=== PATIENT | female | born 1975 | race Caucasian/White ===

== ENCOUNTER 2018-08-17 12:34 | Emergency (ER) | payer BC, OTHER ==
[~2018-08-17] VITALS: Ht 165.1 cm; Wt 72.6 kg
[2018-08-17] MEDS ORDERED: thyroid (12:48)
--- NOTE | 2018-08-17 12:59 | ED Fall/Injury ---
General Chief Complaint: Lower Extremity Stated Complaint: ANKLE INJ Nursing Triage Note: TO ROOM PER W/C ACCOMPIED BY MALE. WAS STEPPING DOWN OFF CURVE WHEN SHE TRIPPED AND TWISTED ANKLE AND FELL ON L SIDE. C/O PAIN IN R ANKLE. Source: patient, spouse Exam Limitations: no limitations History of Present Illness Date Seen by Provider: August 17, 2018 Time Seen by Provider: 12:40 Initial Comments The patient presents to the ER by private conveyance with her significant other and chief complaint that she was visiting the doctor for follow-up appointment and when she stepped off of the curb she twisted her right ankle. She's having quite a bit of pain 10 out of 10 and came straight over the ER to have it checked out. She's not able to put any weight on it. She has not previously injured or had surgery to her ankle or foot on the right side. She denies a history of osteoporosis. She has a history of hysterectomy. She has not taken anything for the pain yet. She denies striking her head nor loss of consciousness. She did land on her left hip but she says that is not bothering her. Allergies and Home Medications Allergies Coded Allergies: latex (Verified Allergy, Unknown, 08/17/18) Uncoded Allergies: sulfa (Allergy, Unknown, 08/17/18) Patient Home Medication List Home Medication List Reviewed: Yes Review of Systems Review of Systems Constitutional: No chills, No diaphoresis Eyes: Denies Blindness, Denies Blurred Vision Ears, Nose, Mouth, Throat: denies ear pain, denies ear discharge Respiratory: No short of breath Past [id number]-Atpgqg-[id number] Hx Patient Social History Alcohol Use: Denies Use Recreational Drug Use: No Smoking Status: Never a Smoker Recent Foreign Travel: No Contact w/Someone Who Travel: No Recent Infectious Disease Expo: No Physical Exam Vital Signs Vital Signs - First Documented 08/17/18 12:38 Temp 97.5 Pulse 78 Resp 18 B/P (MAP) 121/80 (94) Pulse Ox 100 O2 Delivery Room Air Capillary Refill : Less Than 3 Seconds Height, Weight, BMI Height: 5'5.00" Weight: 160lbs. oz. 72.951977ma; BMI Method:Stated General Appearance: WD/WN, mild distress HEENT: PERRL/EOMI, pharynx normal Cardiovascular: normal peripheral pulses, regular rate, rhythm, no edema Respiratory: no respiratory distress, no accessory muscle use Extremities: normal inspection, normal capillary refill, other (no erythema swelling and ecchymoses or abrasion. Painful to the lateral right malleolus posteriorly. Foot nontender with full range of motion. Sensation and motor are intact. No evidence of a tendon injury.) Neurologic/Psychiatric: no motor/sensory deficits, alert, oriented x 3 Dalton Coma Score Best Eye Response: (4) Open Spontaneously Best Verbal Response: (5) Oriented Best Motor Response: (6) Obeys Commands [place] Total: 15 Progress/Results/Core Measures Results/Orders My Orders Orders - CIRA OLMOS Ankle, Right, 3 Views (08/17/18 12:47) Ketorolac Injection (Toradol Injection) (08/17/18 13:00) Hydrocodone/Apap 5/325 Tablet (Lortab 5 (08/17/18 13:30) Medications Given in ED Current Medications Medications Dose Ordered Sig/Thomas Route Start Time Stop Time Status Last Admin Dose Admin Ketorolac Tromethamine 60 mg ONCE ONCE IVP 08/17/18 13:00 08/17/18 13:01 DC 08/17/18 12:56 60 MG Vital Signs/I&O 08/17/18 12:38 Temp 97.5 Pulse 78 Resp 18 B/P (MAP) 121/80 (94) Pulse Ox 100 O2 Delivery Room Air Blood Pressure Mean: 94 Progress Progress Note : Time: 12:57 Progress Note Ice pack, Toradol and a ankle x-ray on the right. Diagnostic Imaging Diagonstic Imaging: Xray Plain Films/CT/US/NM/MRI: ankle (r) Comments NAME: [facility]IA [facility] REC#: [id number] PT STATUS: REG ER : 1975 PHYSICIAN: CIRA OLMOS MD ADMIT DATE: 08/17/18/ER Draft Date of Exam:08/17/18 ANKLE, RIGHT, 3 VIEWS INDICATION: Slipped on curb with twisting injury to ankle 45 minutes ago. Swelling. TECHNIQUE: Three views of the right ankle CORRELATION STUDY: None FINDINGS: There is a small bone fragment adjacent to the tip of the fibula and the lateral talus suspect for small avulsion fracture, likely off the of lateral talus. Ankle mortise maintained. Distal tibia is intact. Mild soft tissue swelling is suggested. IMPRESSION: Findings suggestive of small avulsion fracture, likely at the lateral aspect the talus. Mild soft tissue swelling. Dictated on workstation # [id number] Dict: 08/17/18 1320 Trans: 08/17/18 1327 CV [id number] Interpreted by: ELLIE MASON DO Electronically signed by: Reviewed: Reviewed by Me Departure Impression Primary Impression: Fall Qualified Codes: W19.XXXA - Unspecified fall, initial encounter Additional Impressions: Ankle sprain Qualified Codes: S93.401A - Sprain of unspecified ligament of right ankle, initial encounter Avulsion fracture of talus Qualified Codes: S92.154A - Nondisplaced avulsion fracture (chip fracture) of right talus, initial encounter for closed fracture Disposition: HOME, SELF-CARE Condition: Stable Departure-Patient Inst. Decision time for Depature: 13:32 Referrals: TREVOR GEORGE MD Patient Instructions: Ankle Fracture (DC), Ankle Sprain (DC) Add. Discharge Instructions: Stay off your ankle and use the boot, Chris wrap and crutches as necessary. Use ice 20 minutes every 4 hours for the first 2 days. Afterwards you can use heat topical creams such as icy hot or Biofreeze. Tylenol 1000 mg and ibuprofen 800 mg as necessary for pain. Elevate the foot above the level of your heart when not in use. Call Dr. George, Orthopedic Surgery and request an appointment in 7 days for repeat evaluation. If you still have breakthrough pain you can use one hydrocodone every 6 hours as needed. All discharge instructions reviewed with patient and/or family. Voiced understanding. Scripts Hydrocodone Bit/Acetaminophen (Hydrocodone/Acetaminophen 5/325mg Tablet) 1 Tab Tab 1 EACH PO Q4-6HR PRN for PAIN-MODERATE MDD 10, #14 TAB 0 Refills Prov: CIRA OLMOS 08/17/18 Work/School Note: Work Release Form Date Seen in the Emergency Department: August 17, 2018 Return to Work: August 18, 2018 Restrictions: Need Release from Doctor Other Restrictions Listed Below: Wear boot and use crutches right ankle. CIRA OLMOS August 17, 2018 12:59
[2018-08-17] MEDS ORDERED: KETOROLAC 30 MG/ML VIAL IVP ONE (13:00)
--- NOTE | 2018-08-17 13:16 | NUR ---
BACK FROM [facility] TOLD [employer] THAT THEY HAVE ANOTHER DR'S APPOINTMENT. THEY WOULD LIKE TO GET TO.
--- NOTE | 2018-08-17 13:28 | Diagnostic Imaging Report ---
INDICATION: Slipped on curb with twisting injury to ankle 45 minutes ago. Swelling. TECHNIQUE: Three views of the right ankle CORRELATION STUDY: None FINDINGS: There is a small bone fragment adjacent to the tip of the fibula and the lateral talus suspect for small avulsion fracture, likely off the of lateral talus. Ankle mortise maintained. Distal tibia is intact. Mild soft tissue swelling is suggested. IMPRESSION: Findings suggestive of small avulsion fracture, likely at the lateral aspect the talus. Mild soft tissue swelling. Dictated by: Dictated on workstation # [id number]
--- NOTE | 2018-08-17 13:29 | NUR ---
TO ROOM REPORTS PAIN NOT ANY BETER.
[2018-08-17] MEDS ORDERED: HYDROcodone/APAP 5 MG/325 MG (LORTAB) TAB PO ONE (13:30)
[2018-08-17] MEDS ORDERED: ACHD5005 PO (13:33)
[2018-08-17 13:54] VITALS: BP 121/80
--- NOTE | 2018-08-17 13:54 | NUR ---
STEP LITE BOOT PLACED ON R FOOT. OK BY DR OLMOS. PATIENT INSTRUCTED ON USING CRUTCHES . AMB WELL WITH CRUTCHES.
== END 2018-08-17 13:54 | disposition home or self-care (01) ==
LOC: ER 12:35
DX: S92.151A Displaced avulsion fracture (chip fracture) of right talus, initial encounter for closed fracture (principal); R40.2142 Coma scale, eyes open, spontaneous, at arrival to emergency department; R40.2252 Coma scale, best verbal response, oriented, at arrival to emergency department; R40.2362 Coma scale, best motor response, obeys commands, at arrival to emergency department; Z91.040 Latex allergy status; Z88.2 Allergy status to sulfonamides; Z90.710 Acquired absence of both cervix and uterus; W10.1XXA Fall (on)(from) sidewalk curb, initial encounter; X50.1XXA Overexertion from prolonged static or awkward postures, initial encounter
CPT/HCPCS: 73610; 96374

== ENCOUNTER → 2018-08-23 | Outpatient (CLI) | payer BC ==
[~2018-08-23] MED LIST: ACHD5005 PO; thyroid
== END ==
LOC: ORTHO 09:48
PROVIDERS: ATTEND Orthopaedic Surgery
DX: S93.431A Sprain of tibiofibular ligament of right ankle, initial encounter (principal); W10.1XXA Fall (on)(from) sidewalk curb, initial encounter
CPT/HCPCS: 99203

== ENCOUNTER → 2018-09-12 | Outpatient (CLI) | payer BC | LOC: ORTHO 12:39 | PROVIDERS: ATTEND Orthopaedic Surgery | DX: S93.431A Sprain of tibiofibular ligament of right ankle, initial encounter (principal); W10.1XXA Fall (on)(from) sidewalk curb, initial encounter | CPT/HCPCS: 99213 ==

== ENCOUNTER → 2018-10-03 | Outpatient (CLI) | payer BC | LOC: ORTHO 12:46 | PROVIDERS: ATTEND Orthopaedic Surgery | DX: S93.431A Sprain of tibiofibular ligament of right ankle, initial encounter (principal); W10.1XXA Fall (on)(from) sidewalk curb, initial encounter | CPT/HCPCS: 99213 ==

== ENCOUNTER → 2018-10-24 | Outpatient (CLI) | payer BC | LOC: ORTHO 12:50 | PROVIDERS: ATTEND Orthopaedic Surgery | DX: S93.401A Sprain of unspecified ligament of right ankle, initial encounter (principal); W19.XXXA Unspecified fall, initial encounter | CPT/HCPCS: 99213 ==

== ENCOUNTER → 2018-11-03 | Outpatient (CLI) | payer BC ==
--- NOTE | 2018-11-03 13:41 | Diagnostic Imaging Report ---
PROCEDURE: MRI right joint lower extremity without contrast. TECHNIQUE: Multiplanar, multisequence non contrast-enhanced MRI of the right lower extremity was accomplished. INDICATION: Fall with right ankle pain. COMPARISON: No prior MRI studies are available for comparison. FINDINGS: There is a small amount of fluid in the ankle joint. The marrow signal intensity appears to be normal. No marrow edema or acute fracture is identified. The Achilles tendon demonstrates normal morphology and signal intensity. The peroneus brevis and longus tendons appear to be intact. The flexor digitorum, flexor hallucis longus and posterior tibialis tendons appear to be intact. Superficial and deep bundles of the deltoid appear to be intact. Anterior and posterior syndesmotic ligaments are unremarkable. Posterior talofibular ligament is intact. There does appear to be moderate amount of thickening and intermediate signal associated with the anterior talofibular ligament, likely owing to injury. No fluid collections are seen. The articular cartilage of the talar dome appears to be intact, without evidence of osteochondral defect. IMPRESSION: Small ankle joint effusion. There are findings suggestive of anterior talofibular ligament tear. No other abnormality is detected. Dictated by: Dictated on workstation # [id number]
== END ==
LOC: RAD 12:28
PROVIDERS: ATTEND Orthopaedic Surgery
DX: S93.401A Sprain of unspecified ligament of right ankle, initial encounter (principal); W19.XXXA Unspecified fall, initial encounter
CPT/HCPCS: 73721

== ENCOUNTER → 2019-03-12 | Outpatient (CLI) | payer BC ==
--- NOTE | 2019-03-12 10:12 | Diagnostic Imaging Report ---
INDICATION: Left breast lump for 2 months. Interrogation of area of lump in the lateral left breast was performed. No sonographic abnormality is seen. No solid or cystic mass is identified. Left axillary lymph nodes are present, largest measuring 1.8 x 0.8 x 2.2 cm, indeterminate. IMPRESSION: BI-RADS 2 No sonographic abnormalities identified at the area of palpable abnormality in the lateral left breast. Continued close clinical and self breast exam is recommended to confirm stability. Mildly prominent left axillary lymph nodes are noted, indeterminate. Dictated by: Dictated on workstation # [id number]
== END ==
LOC: RAD 09:08
PROVIDERS: ATTEND Nurse Practitioner Family
DX: N63.21 Unspecified lump in the left breast, upper outer quadrant (principal)
CPT/HCPCS: 76642

== ENCOUNTER → 2019-04-23 | Outpatient (CLI) | payer BC ==
[~2019-04-23] VITALS: Ht 165.1 cm; Wt 63.6 kg
[~2019-04-23] MED LIST changes: +LIDOCAINE 1% INJ 20 ML 20 ML VIAL INJ ONE
--- NOTE | 2019-04-23 14:17 | Diagnostic Imaging Report ---
INDICATION: Lateral left breast pain. TECHNIQUE: Sonographic interrogation of the area of pain in the lateral left breast was performed from the 1 to 3 o'clock location. FINDINGS: No sonographic abnormality is seen. No solid or cystic mass is identified. There are several cysts at the 3 o'clock location of the left breast with the largest approximately 14 mm x 10 mm in size. The left axilla again contains a prominent lymph node measuring 3.2 x 0.8 x 1.2 cm. The patient presents today for biopsy of this lymph node. IMPRESSION: No suspicious sonographic abnormality is identified. There are simple cysts in the outer left breast. No abnormality at the area of pain is seen. There is a prominent, probable reactive lymph node in the left axilla. This will be by biopsied later today. ACR BI-RADS Category 2: Benign findings. Result letter will be mailed to the patient. Note: At least 10% of breast cancer is not imaged by mammography. Dictated by: Dictated on workstation # [id number]
--- NOTE | 2019-04-23 14:20 | Diagnostic Imaging Report ---
Indication: Lump in the left axilla. Patient presents for left axillary lymph node biopsy. Patient brought to the procedure room placed on table in supine position. Ultrasound imaging over left axilla was performed to evaluate appropriate entry site. The left axilla was prepped and draped in usual sterile fashion. A total of 3 core biopsies were obtained of the prominent lymph node in the left axilla utilizing a 14-gauge Achieve needle. A marker clip was then deployed. Patient tolerated procedure well and was sent to mammography for postbiopsy mammogram. IMPRESSION: Successful ultrasound-guided core biopsy of the enlarged left axillary lymph node. Pathology results are currently pending. Dictated by: Dictated on workstation # [id number]
--- NOTE | 2019-04-23 16:02 | Diagnostic Imaging Report ---
INDICATION: Pain in the upper outer left breast. COMPARISON: Correlation is made with the prior mammogram from 11/08/2018 and 10/26/2017. TECHNIQUE: Unilateral left 2D and 3D diagnostic mammography was performed. A BB was placed at the area of pain in the upper outer left breast. FINDINGS: The left breast remains heterogeneously dense, limiting the sensitivity of mammography. The parenchymal pattern is stable. No mass or suspicious calcifications are seen. No abnormality at the area of pain is identified. The left axilla is unremarkable. IMPRESSION: No mammographic features suspicious for malignancy are identified. Even so, sonographic interrogation of the area of pain in the upper outer left breast is recommended and will be performed today. ACR BI-RADS Category 0: Incomplete. (Needs additional imaging evaluation). Result letter will be mailed to the patient. Note: At least 10% of breast cancer is not imaged by mammography. Dictated by: Dictated on workstation # [id number]
--- NOTE | 2019-04-24 12:06 | Diagnostic Imaging Report ---
INDICATION: Left axillary lymph node biopsy. 2D MLO and ML views of the left breast were obtained. Marker clip is identified in the left axilla. There is some mild surrounding density noted consistent with small amount of blood from recent biopsy. There is also a marker clip in the anterior aspect of the left breast. IMPRESSION: Clip is identified in the left axilla. Dictated by: Dictated on workstation # [id number]
== END ==
LOC: RAD 11:45
PROVIDERS: ATTEND Nurse Practitioner Family
DX: N60.02 Solitary cyst of left breast (principal); N63.20 Unspecified lump in the left breast, unspecified quadrant; R59.0 Localized enlarged lymph nodes
CPT/HCPCS: 19083; 76642

== ENCOUNTER → 2020-02-05 | Outpatient (CLI) | payer BC ==
[~2020-02-05] MED LIST changes: -LIDOCAINE 1% INJ 20 ML 20 ML VIAL INJ ONE
--- NOTE | 2020-02-05 16:09 | Diagnostic Imaging Report ---
INDICATION: Asymptomatic postmenopausal female. Family history of osteoporosis and B12 deficiency. COMPARISON: None. FINDINGS: AP Spine L1-L4: [BMD (g/cm2): 1.033] [T-Score: -1.4] [Z-Score: -1.3] LT Hip Neck: [BMD (g/cm2): 0.967] [T-Score: -0.5] [Z-Score: 0.1] LT Hip Total: [BMD (g/cm2):1.039] [T-Score:0.2] [Z-Score: 0.6] RT Hip Neck: [BMD (g/cm2):0.922] [T-Score:-0.8] [Z-Score:-0.2] RT Hip Total: [BMD (g/cm2):0.987] [T-score:-0.2] [Z-Score:0.2] *Indicates significant change from prior examination based on 95% confidence level. World Health Organization criteria for BMD interpretation classify patients as Normal (T-score at or above -1.0), Osteopenic (T-score between -1.0 and -2.5) or Osteoporotic (T-score at or below -2.5). LIMITATIONS AND MODIFICATION: None. FRACTURE RISK (FRAX SCORE): The ten year probability of (%): Major Osteoporotic Fracture: [na] Hip Fracture: [na] IMPRESSION: 1. Osteopenia (Low bone mass). 2. Baseline examination. 3. See below National Osteoporosis Foundation guidelines on when to potentially initiate pharmacologic therapy. Based on the National Osteoporosis Foundation Guidelines, pharmacologic treatment should be initiated in any of the following, unless clinical conditions suggest otherwise: * Any patient with prior fragility fracture of the hip or vertebrae. A spine fracture indicates 5X risk for subsequent spine fracture and 2X risk for subsequent hip fracture. * Osteoporosis (T-score <-2.5). * Postmenopausal women and men age 50 and older with low bone mass/osteopenia (T-score between -1.0 and -2.5) by DXA and 10-year major osteoporotic fracture greater than 20% or a 10-year probability of hip fracture greater than 3%. These fracture risks are supplied above in the FRAX score, if applicable. * Clinician judgement and/or patient preferences may indicate treatment for people with 10-year fracture probabilities above or below these levels. Dictated by: Dictated on workstation # [id number]
== END ==
LOC: RAD 14:00
PROVIDERS: ATTEND Nurse Practitioner Family
DX: Z00.01 Encounter for general adult medical examination with abnormal findings (principal); M85.89 Other specified disorders of bone density and structure, multiple sites; E53.8 Deficiency of other specified B group vitamins; E56.8 Deficiency of other vitamins; Z78.0 Asymptomatic menopausal state; Z87.81 Personal history of (healed) traumatic fracture; Z82.62 Family history of osteoporosis
CPT/HCPCS: 77080